=== PATIENT | male | born 1970 | race Caucasian/White ===

== ENCOUNTER → 2024-02-08 | Outpatient (CLI) | payer BC | LOC: M OUTALCOH 07:29 | PROVIDERS: ATTEND Psychiatry & Neurology Psychiatry | DX: Z03.89 Encounter for observation for other suspected diseases and conditions ruled out (principal); Z72.0 Tobacco use ==

== ENCOUNTER → 2024-02-23 | Outpatient (RCR) | payer BC | LOC: M OUTALCOH 13:40 | PROVIDERS: ATTEND Psychiatry & Neurology Psychiatry | DX: F10.10 Alcohol abuse, uncomplicated (principal); Z72.0 Tobacco use ==

== ENCOUNTER 2024-03-23 13:47 | Outpatient (RCR) | payer BC | END 2024-03-25 | LOC: M OUTALCOH 13:47 | PROVIDERS: ATTEND Psychiatry & Neurology Psychiatry | DX: F10.10 Alcohol abuse, uncomplicated (principal); Z72.0 Tobacco use ==